=== PATIENT | female | born 1985 | race African-American/Black ===

== ENCOUNTER 2017-01-30 13:12 | Inpatient (IN) ==
[2017-01-30] MEDS ORDERED: PROMETHAZINE 25 MG/1 ML VIAL ONE (14:42)
[2017-01-30] MEDS ORDERED: SODIUM CHLORIDE 0.9% 1,000 ML IV STA (14:43)
[2017-01-30] MEDS ORDERED: PROMETHAZINE INJ 25 MG in SODIUM CHLORIDE 0.9% 50 ML IV STA (14:48)
[2017-01-30 15:10] LABS: Albumin 3.3 G/DL (3.4-5.0); Bilirubin,Total 0.4 MG/DL (0.2-1.0); Calcium 8.8 MG/DL (8.5-10.1); Osmolality,Calculated 278.3 MOS/KG (273-304); Potassium 2.6 MMOL/L (3.5-5.1); Total Protein 6.5 G/DL (6.4-8.3)
[2017-01-30 15:14] LABS: Apearance,Urine Slightly Hazy (Clear); Bilirubin,Urine Negative (Negative); Blood, Urine Small mg/dL (Negative); Glucose,Urine (UA) Negative (Negative); Ketones,Urine Negative (Negative); Nitrite,Urine Negative (Negative); Protein,Urine Negative; RBC,Urine 1 /HPF (0-4); Squamous Epithelial Cell,Urine Occasional /HPF (0-10); Urine Color Yellow (Yellow); Urine Specific Gravity 1.004 (1.001-1.035); Urine Urobilinogen < 2.0 EU/DL (0.2-1.0); WBC,Urine 12 /HPF (0-6)
[2017-01-30 15:40] LABS: Basophils % 0.3 % (0.0-0.8); Eosinophils # 0.1 10*3/uL (0.0-0.87); Eosinophils % 0.7 % (0.00-10.9); Hematocrit 22.6 VOL% (35.7-47.0); Immature Granulocytes % 0.4 %; Immature Granulocytes Absolute 0.03 #; Lymphocytes # 1.7 10*3/uL (1.4-4.0); Lymphocytes % 22.9 % (21.3-54.2); Mean Corpuscular HGB Conc 28.3 GM/DL (32-36); Mean Corpuscular Hemoglobin 18 PG (27-34); Mean Corpuscular Volume 62.4 FL (87-102); Mean Platelet Volume 8.7 FL (9.6-12.0); Monocytes # 0.5 10*3/uL (0.11-0.8); Monocytes % 6.8 % (1.7-12.7); Neutrophils # 5.2 10*3/uL (1.4-7.4); Neutrophils % 68.9 % (38.7-73.9); Platelet Count 853 T/CUMM (130-400); Red Blood Count 3.62 MC/CUMM (3.8-5.5); White Blood Count 7.5 T/CUMM (4-12)
[2017-01-30 15:44] LABS: Hemoglobin 6.4 GM/DL (12.0-16.0)
[2017-01-30 16:04] LABS: Hypochromasia 1+
[2017-01-30 16:05] LABS: Elliptocytes Few; Microcytosis Slight; Platelet Estimate Adequate; Target Cells Few
[2017-01-30 16:06] LABS: Schistocytes Few
[2017-01-30 16:15] LABS: Basophils % 0.1 % (0.0-0.8); Eosinophils % 0.3 % (0.00-10.9); Hematocrit 24.3 VOL% (35.7-47.0); Hemoglobin 6.7 GM/DL (12.0-16.0); Immature Granulocytes % 0.7 %; Immature Granulocytes Absolute 0.05 #; Lymphocytes # 1.7 10*3/uL (1.4-4.0); Lymphocytes % 24.3 % (21.3-54.2); Mean Corpuscular HGB Conc 27.6 GM/DL (32-36); Mean Corpuscular Hemoglobin 17 PG (27-34); Mean Platelet Volume 8.4 FL (9.6-12.0); Monocytes # 0.4 10*3/uL (0.11-0.8); Monocytes % 5.2 % (1.7-12.7); Neutrophils # 4.8 10*3/uL (1.4-7.4); Neutrophils % 69.4 % (38.7-73.9); Platelet Count 831 T/CUMM (130-400); Red Blood Count 3.86 MC/CUMM (3.8-5.5); Red Cell Distribution Width 22.3 % (9.3-17.3); White Blood Count 6.9 T/CUMM (4-12)
[2017-01-30 16:36] LABS: Albumin 3.5 G/DL (3.4-5.0); Anisocytosis Slight; Bilirubin,Total 0.6 MG/DL (0.2-1.0); Calcium 8.8 MG/DL (8.5-10.1); Elliptocytes Few; Hypochromasia 1+; Microcytosis Slight; Osmolality,Calculated 277.3 MOS/KG (273-304); Potassium 2.7 MMOL/L (3.5-5.1); Schistocytes Few; Target Cells Few; Total Protein 6.9 G/DL (6.4-8.3)
[2017-01-30 16:37] LABS: Platelet Estimate Adequate; Polychromasia Few
[2017-01-30] MEDS ORDERED: POTASSIUM CHLORIDE INJ 40 MEQ in SODIUM CHLORIDE 0.9% 500 ML IV ONE (17:30)
[2017-01-30] MEDS ORDERED: SODIUM CHLORIDE 0.9% 1,000 ML IV PRN (17:54)
[2017-01-30] MEDS ORDERED: LEVOFLOXACIN INJ 750 MG in PREMIX 1 EACH IV SCH (18:00)
[2017-01-30] MEDS ORDERED: ACETAMINOPHEN 325 MG TABLET PO PRN (18:59)
[2017-01-30] MEDS ORDERED: INFLUENZA VIRUS VACCINE 0.5 ML SYRINGE IM ONE (19:10)
[2017-01-30 19:52] LABS: Basophils % 0.3 % (0.0-0.8); Eosinophils % 0.4 % (0.00-10.9); Hematocrit 22.7 VOL% (35.7-47.0); Immature Granulocytes % 0.3 %; Immature Granulocytes Absolute 0.02 #; Lymphocytes # 2.1 10*3/uL (1.4-4.0); Mean Corpuscular HGB Conc 27.3 GM/DL (32-36); Mean Corpuscular Hemoglobin 18 PG (27-34); Mean Corpuscular Volume 63.9 FL (87-102); Mean Platelet Volume 8.4 FL (9.6-12.0); Monocytes # 0.5 10*3/uL (0.11-0.8); Monocytes % 6.2 % (1.7-12.7); Neutrophils # 4.9 10*3/uL (1.4-7.4); Neutrophils % 64.8 % (38.7-73.9); Platelet Count 785 T/CUMM (130-400); Red Blood Count 3.55 MC/CUMM (3.8-5.5); White Blood Count 7.5 T/CUMM (4-12)
[2017-01-30 19:54] LABS: Hemoglobin 6.2 GM/DL (12.0-16.0)
[2017-01-30 20:12] LABS: Anisocytosis 1+; Lymphocytes 29 % (20-55); Segmented Neutrophils 66 % (50-85); Total Cells Counted 100
[2017-01-30 20:13] LABS: Elliptocytes Few; Microcytosis Slight; Platelet Estimate Adequate; Polychromasia Few; Schistocytes Few; Target Cells Few
[2017-01-30 20:21] LABS: Folate 9.4 NG/ML (5.4-24.0); Vitamin B12 401 PG/ML (211-911)
[2017-01-30 20:56] LABS: Sedimentation Rate-Westergren 57 MM/HR (0-20)
[2017-01-31 06:41] LABS: Basophils % 0.1 % (0.0-0.8); Eosinophils % 0.5 % (0.00-10.9); Hematocrit 26.7 VOL% (35.7-47.0); Immature Granulocytes % 0.4 %; Immature Granulocytes Absolute 0.03 #; Lymphocytes # 1.8 10*3/uL (1.4-4.0); Lymphocytes % 22.4 % (21.3-54.2); Mean Corpuscular HGB Conc 30.3 GM/DL (32-36); Mean Corpuscular Hemoglobin 21 PG (27-34); Mean Corpuscular Volume 68.8 FL (87-102); Mean Platelet Volume 8.8 FL (9.6-12.0); Monocytes # 0.5 10*3/uL (0.11-0.8); Monocytes % 6.9 % (1.7-12.7); Neutrophils # 5.4 10*3/uL (1.4-7.4); Neutrophils % 69.7 % (38.7-73.9); Platelet Count 710 T/CUMM (130-400); Red Blood Count 3.88 MC/CUMM (3.8-5.5); Red Cell Distribution Width 25.2 % (9.3-17.3); White Blood Count 7.8 T/CUMM (4-12)
[2017-01-31 07:02] LABS: Hemoglobin 8.1 GM/DL (12.0-16.0)
[2017-01-31 07:10] LABS: Elliptocytes Few; Giant Platelets Few; Hypochromasia 1+; Microcytosis Slight; Platelet Estimate Increased
[2017-01-31 07:17] LABS: Calcium 8.9 MG/DL (8.5-10.1); Osmolality,Calculated 283.7 MOS/KG (273-304); Potassium 3.1 MMOL/L (3.5-5.1)
[2017-01-31 08:18] VITALS: BP 127/70
[2017-01-31 09:20] LABS: Hemoglobin A1 (Alkaline) 98.3 % (96.5-98.5); Hemoglobin A2 (Alkaline) 1.7 % (1.5-3.5)
[2017-01-31 10:01] LABS: % Iron Saturation 9.1 % (18-50)
[2017-01-31] MEDS ORDERED: POTASSIUM CHLORIDE 20 MEQ TABLET PO ONE (11:00)
== END 2017-01-31 11:43 | disposition home or self-care (01) | DRG 663 ==
LOC: N.ED 13:12 → N.EDINP 17:16 → N.2E 18:44
PROVIDERS: ADMIT Internal Medicine; ATTEND Internal Medicine

== ENCOUNTER 2018-11-26 22:30 | Inpatient (IN) ==
[2018-11-26] MEDS ORDERED: OXYTOCIN/LR 20 UNIT/1,000 ML BAG IV ONE (22:32)
[2018-11-26] MEDS ORDERED: ONDANSETRON 4 MG/2 ML VIAL IV PRN (22:38)
[2018-11-26] MEDS ORDERED: BUTORPHANOL 2 MG/ML VIAL IV PRN (22:38)
[2018-11-26] MEDS ORDERED: MEPERIDINE 50 MG/1 ML VIAL ONE (22:49)
[2018-11-26] MEDS ORDERED: PROMETHAZINE 25 MG/1 ML VIAL ONE (22:49)
[2018-11-26] MEDS ORDERED: OXYTOCIN/LR 20 UNIT/1,000 ML BAG IV PRN (22:51)
[2018-11-26 23:12] LABS: Basophils % 0.2 % (0.0-0.8); Eosinophils % 0.1 % (0.00-10.9); Hematocrit 24.5 VOL% (35.7-47.0); Hemoglobin 7.3 GM/DL (12.0-16.0); Immature Granulocytes % 1.1 %; Immature Granulocytes Absolute 0.19 #; Lymphocytes # 1.1 10*3/uL (1.4-4.0); Lymphocytes % 6.1 % (21.3-54.2); Mean Corpuscular HGB Conc 29.8 GM/DL (32-36); Mean Corpuscular Volume 74.2 FL (87-102); Mean Platelet Volume 9.3 FL (9.6-12.0); Monocytes % 4.5 % (1.7-12.7); Platelet Count 326 T/CUMM (130-400); Red Cell Distribution Width 17.2 % (9.3-17.3); White Blood Count 17.9 T/CUMM (4-12)
[2018-11-26] MEDS ORDERED: TERBUTALINE 1 MG/1 ML VIAL SUBCUT ONE (23:13)
[2018-11-26 23:34] LABS: Alanine Aminotransferase < 6 U/L (13-56); Albumin 2.5 G/DL (3.4-5.0); Alkaline Phosphatase 153 U/L (45-117); Aspartate Amino Transferase 6 U/L (0-37); Bilirubin,Total < 0.39 MG/DL (0.2-1.0); Blood Urea Nitrogen 5 MG/DL (7-18); Calcium 8.7 MG/DL (8.5-10.1); Estimated Glom Filtration Rate 156 ML/MIN; Glucose 115 MG/DL (74-106); Osmolality,Calculated 272.7 MOS/KG (273-304); Total Protein 6.7 G/DL (6.4-8.3)
[2018-11-26] MEDS ORDERED: hydrALAZINE 20 MG/1 ML VIAL IV ONE (23:35)
[2018-11-26] MEDS ORDERED: hydrALAZINE 20 MG/1 ML VIAL ONE (23:37)
[2018-11-26] MEDS ORDERED: FAMOTIDINE 20 MG/2 ML VIAL IV ONE (23:58)
[2018-11-26] MEDS ORDERED: CITRIC ACID/SODIUM CITRATE 30 ML UDCUP PO ONE (23:58)
[2018-11-26] MEDS ORDERED: LACTATED RINGERS 1,000 ML IV ONE (23:58)
[2018-11-27] MEDS: LACTATED RINGERS 1,000 ML IV SCH ×2 (00:12→05:45)
[2018-11-27] MEDS ORDERED: hydrALAZINE 20 MG/1 ML VIAL IV ONE (00:14)
[2018-11-27] MEDS ORDERED: MIDAZOLAM 2 MG/2 ML VIAL IV ONE (00:22)
[2018-11-27 00:27] LABS: HIV Antigen/Antibody Result Nonreactive (Nonreactive); Hepatitis B Surface Ag Quant 0.15 Index; Hepatitis B Surface Ag Result Negative (Negative); Rubella Antibody IgG 9.4 IU/ML
[2018-11-27] MEDS ORDERED: ePHEDrine 50 MG/ML AMP ONE (01:48)
[2018-11-27] MEDS ORDERED: fentaNYL 2 MCG/ROPIV 0.2% EPID 0 ML EPIDURAL ONE (01:49)
[2018-11-27] MEDS ORDERED: ROPIVACAINE 0.2% 100 ML EPIDURAL SCH (02:00)
[2018-11-27] MEDS ORDERED: BUPIVACAINE 0.25% 50 ML VIAL ONE (02:12)
[2018-11-27] MEDS ORDERED: ROPIVACAINE 0.5% 30 ML VIAL ONE (02:15)
[2018-11-27] MEDS ORDERED: HYDROmorphone 2 MG/1 ML VIAL IV ONE (03:33)
[2018-11-27] MEDS ORDERED: MEPERIDINE 50 MG/1 ML VIAL IV ONE (05:33)
[2018-11-27] MEDS ORDERED: INFLUENZA VIRUS VACCINE 0.5 ML SYRINGE IM ONE ×2 (07:52→09:00)
[2018-11-27] MEDS ORDERED: BENZOCAINE 20%/MENTHOL 0.5% SPRAY 56 GM CAN TOP PRN (08:08)
[2018-11-27] MEDS ORDERED: ACETAMINOPHEN 325 MG TABLET PO PRN (08:08)
[2018-11-27] MEDS ORDERED: DIPH/TET/ACEL PERT BOOSTER VACCINE 0.5 ML VIAL IM ONE (08:08)
[2018-11-27] MEDS ORDERED: HYDROCORTISONE 2.5% RECTAL CREAM 30 GM TUBE TOP PRN (08:08)
[2018-11-27] MEDS ORDERED: ONDANSETRON 4 MG/2 ML VIAL IV PRN (08:08)
[2018-11-27] MEDS ORDERED: LANOLIN 50% CREAM 0.3 OZ TUBE TOP PRN (08:08)
[2018-11-27] MEDS ORDERED: MEASLES/MUMPS/RUBELLA VACCINE 0.5 ML VIAL SUBCUT ONE (08:08)
[2018-11-27] MEDS ORDERED: OXYTOCIN/LR 20 UNIT/1,000 ML BAG IV ONE (08:08)
[2018-11-27] MEDS ORDERED: BISACODYL 10 MG SUPP RECTAL PRN (08:08)
[2018-11-27] MEDS ORDERED: WITCH HAZEL PADS 100/JAR TOP PRN (08:08)
[2018-11-27 09:53] LABS: Apearance,Urine CLEAR (Clear); Bacteria,Urine Occasional /HPF (Few); Bilirubin,Urine Negative (Negative); Blood, Urine Negative (Negative); Glucose,Urine (UA) Negative (Negative); Ketones,Urine Negative (Negative); Mucus,Urine Many /LPF (Occasional); Nitrite,Urine Negative (Negative); Protein,Urine Negative; RBC,Urine 5 /HPF (0-4); Squamous Epithelial Cell,Urine Occasional /HPF (0-10); Urine Color Yellow (Yellow); Urine Specific Gravity 1.017 (1.001-1.035); Urine Urobilinogen < 2.0 EU/DL (0.2-1.0); WBC,Urine <1 /HPF (0-6)
[2018-11-27] MEDS: DOCUSATE SODIUM 100 MG CAPSULE PO SCH ×2 (11:16→21:23)
[2018-11-27] MEDS: LABETALOL 100 MG TABLET PO SCH ×2 (12:08→21:23)
[2018-11-27] MEDS: IBUPROFEN 800 MG TABLET PO PRN ×2 (13:14→19:45)
[2018-11-27] MEDS: FERROUS SULFATE 325 MG TABLET PO SCH ×2 (15:01→21:23)
[2018-11-27 19:20] LABS: Basophils % 0.1 % (0.0-0.8); Eosinophils % 0.1 % (0.00-10.9); Hematocrit 22.7 VOL% (35.7-47.0); Hemoglobin 6.8 GM/DL (12.0-16.0); Immature Granulocytes % 0.9 %; Immature Granulocytes Absolute 0.16 #; Lymphocytes # 1.8 10*3/uL (1.4-4.0); Lymphocytes % 10.5 % (21.3-54.2); Mean Corpuscular Volume 73.2 FL (87-102); Mean Platelet Volume 9.6 FL (9.6-12.0); Monocytes % 4.2 % (1.7-12.7); Neutrophils % 84.2 % (38.7-73.9); Platelet Count 344 T/CUMM (130-400); Red Cell Distribution Width 17.6 % (9.3-17.3); White Blood Count 17.1 T/CUMM (4-12)
[2018-11-27] MEDS ORDERED: SODIUM CHLORIDE 0.9% 1,000 ML IV PRN (19:33)
[2018-11-27 20:58] LABS: Anisocytosis 1+; Hypochromasia 1+; Lymphocytes 4 % (20-55); Microcytosis 1+; Platelet Estimate Adequate; Segmented Neutrophils 93 % (50-85); Total Cells Counted 100
[2018-11-27] MEDS ORDERED: FUROSEMIDE 20 MG/2 ML VIAL IV ONE (21:04)
[2018-11-28 07:54] LABS: Basophils % 0.2 % (0.0-0.8); Eosinophils % 0.2 % (0.00-10.9); Hematocrit 26.2 VOL% (35.7-47.0); Hemoglobin 8.1 GM/DL (12.0-16.0); Immature Granulocytes % 1.3 %; Immature Granulocytes Absolute 0.21 #; Lymphocytes % 12.1 % (21.3-54.2); Mean Corpuscular HGB Conc 30.9 GM/DL (32-36); Mean Corpuscular Volume 75.5 FL (87-102); Mean Platelet Volume 9.1 FL (9.6-12.0); NRBC # 0.02 10*3/uL; Neutrophils % 82.2 % (38.7-73.9); Platelet Count 294 T/CUMM (130-400); Red Blood Count 3.47 MC/CUMM (3.8-5.5); White Blood Count 16.6 T/CUMM (4-12)
[2018-11-28 08:12] LABS: Hematocrit 26.5 VOL% (35.7-47.0); Hemoglobin 8.2 GM/DL (12.0-16.0)
[2018-11-28] MEDS: DOCUSATE SODIUM 100 MG CAPSULE PO SCH (08:58)
[2018-11-28] MEDS: LABETALOL 100 MG TABLET PO SCH (08:58)
[2018-11-28] MEDS: FERROUS SULFATE 325 MG TABLET PO SCH ×2 (08:58→16:24)
[2018-11-28] MEDS ORDERED: ALUMINUM/MAGNES/SIMETH MAX STR 30 ML UDCUP PO PRN (12:04)
[2018-11-28 16:41] VITALS: BP 163/92
== END 2018-11-28 19:50 | disposition home or self-care (01) | DRG 560 ==
LOC: N.LDOUT 22:30 → N.LD 22:31 → N.OB 11-27 09:59
PROVIDERS: ADMIT Obstetrics & Gynecology; ATTEND Obstetrics & Gynecology